=== PATIENT | female | born 1980 | race Caucasian/White ===

== ENCOUNTER 2024-07-01 22:08 | Emergency (ER) | payer SELFPAY ==
[2024-07-01 22:10] VITALS: BP 142/81; PULSE 97; RESP 20; TEMP 36.1; O2SAT 97; BMI 27.9
[2024-07-01 22:17] VITALS: O2SAT 100
--- NOTE | 2024-07-01 22:24 | RAD_ITS ---
PROCEDURE: CHEST 1 VIEW (PORTABLE) 07/01/2024 REASON FOR EXAM: CHEST PAIN TECHNIQUE: Frontal view of the chest. COMPARISON: None FINDINGS: Hardware: None Heart: Cardiac and mediastinal contours are stable. Lungs: The lungs are clear. Bones: The bones are unremarkable. Other: RAD/Chest 1 View (Portable) IMPRESSION: No Acute Findings. Reading Location: [facility]
[2024-07-01 22:48] LABS: Absolute Neutrophil Count 5.7 X10^3/uL (2.0-7.7); Basophil# 0.04 X10^3/uL; Basophil% 0.4 % (0-1); Eosinophil# 0.07 X10^3/uL; Eosinophils% 0.7 % (0-5); Hemoglobin 14.4 g/dL (12.0-15.0); Lymphocyte % 33.5 % (19-41); Mean Corp Hgb Conc 34.3 g/dL (32-36); Mean Corpuscular Hgb 30.3 pg (27.0-32.0); Mean Corpuscular Volume 88.4 fL (81-99); Mean Platelet Vol. 10.6 fl (6.2-12.0); Monocyte# 0.48 X10^3/uL; NRBC Flagged by Analyzer 0 % (0-5); Neutrophil # 5.74 X10^3/uL (2.7-7.7); Neutrophil % 60.2 % (47-70); Platelet Count 346 K/mm3 (150-450); RBC Distribution Width CV 12.2 % (11.6-14.6); Red Blood Count 4.75 M/mm3 (4.2-5.4); White Blood Count 9.6 K/mm3 (4.4-11.0)
[2024-07-01 23:03] LABS: Anion Gap 14 (5-15); BUN 13 mg/dL (4-19); BUN/Creat Ratio 16.1 RATIO (10-20); Calcium,Total 9.3 mg/dL (7.6-11.0); Carbon Dioxide 22.4 mmol/L (21.0-32.0); Chloride 99 mmol/L (98-108); Creatinine, Serum 0.81 mg/dL (0.70-1.20); EST Glomerular Filtration Rate 92 (>60); Glucose 97 mg/dL (70-99); Potassium 3.2 mmol/L (3.3-5.1); Sodium Level 135 mmol/L (133-145); Troponin T High Sensitivity < 6 ng/L (<=14)
[2024-07-01 23:09] VITALS: PULSE 63; RESP 15; O2SAT 98
[2024-07-02] VITALS: PULSE 67; RESP 16; O2SAT 99
[2024-07-02 00:32] VITALS: PULSE 60; RESP 13; O2SAT 97
[2024-07-02 00:34] VITALS: BP 118/62; PULSE 63; RESP 27; O2SAT 99
[2024-07-02 00:52] LABS: Magnesium 1.9 mg/dL (1.5-2.2)
[2024-07-02 01:00] VITALS: BP 110/64; PULSE 63; RESP 18; O2SAT 98
[2024-07-02 01:13] LABS: Troponin T High Sens 2 HR < 6 ng/L (<=14)
[2024-07-02 01:25] VITALS: BP 118/64; PULSE 69; RESP 13; O2SAT 99
--- NOTE | 2024-07-02 01:27 | EDS_ITS ---
HPI History of Present Illness Chief Complaint: Chest Pain Informant: patient and family Narrative Narrative: Patient is a 44-year-old female who reports no significant past medical history. She states that this evening she began to feel like her heart was racing and slightly short of breath and with this she noticed some anterior left-sided chest discomfort. She states that her blood pressure was elevated as well. She states then she noticed a sensation of paresthesias throughout her arms and legs. She states that she only takes supplements and that the only new medication is a recent prescription for a Medrol Dosepak secondary to poison marilyn. She also states that she has not suddenly stopped medications which could precipitate withdrawal symptoms. She denies any recent travel surgery or history of DVT. She denies any history of illicit drug use. However with her reported hypertension and palpitations and chest discomfort she was concerned this could be cardiac in nature and therefore comes to the hospital for evaluation [facility] Medical History (Updated 07/02/24 @ 01:[address] Giancarlo Hendrix, DO) Impetigo Folliculitis barbae Acute maxillary sinusitis, unspecified Back pain Neck pain Severe headache Anemia Home Medications ?Medication ?Instructions ?Recorded ?Last Taken ?Type diazepam 2 mg tablet 5 mg (2.5 x 2 mg) PO TID PRN PRN 11/22/13 Unknown Rx Vertigo #10 TABLETS lisdexamfetamine 70 mg capsule 70 mg PO DAILY 10/19/22 Unknown History (Vkishan) Allergy/AdvReac Type Severity Reaction Status Date / Time Penicillins (PCN) Allergy Other Verified 07/01/24 22:09 Surgical History Hx of cholecystectomy H/O: hysterectomy Hx of appendectomy Social History (Updated 07/01/24 @ 22:18 by Roshni Pinzon) household members: children current occupational status: employed Smoking Status: Current every day smoker tobacco type: cigarettes ROS ROS ED Constitutional Constitutional ED: Denies chills or fever(s) Eyes Eyes: Denies blurry vision or change in vision ENT ENT ED: Denies sore throat Cardiovascular Cardiovascular: Reports chest pain, palpitations and racing heartbeat Respiratory/Chest Respiratory/Chest: Reports dyspnea; Denies cough Gastrointestinal Gastrointestinal: Denies abdominal pain, diarrhea, nausea or vomiting Genitourinary Genitourinary ED: Denies dysuria Musculoskeletal Musculoskeletal: Denies myalgias Integumentary Denies rash Neurologic Neurologic: Denies headache(s) Hematologic/Lymphatic Hematologic/Lymphatic: Denies easy bleeding or easy bruising EXAM Physical Exam Const Vital Signs: 07/01/24 22:10 07/01/24 22:17 07/01/24 22:17 Temperature 96.9 F L Temperature Source Temporal Pulse Rate 97 Respiratory Rate 20 H Respiratory Effort Normal Non-Labored Blood Pressure 142/81 H Blood Pressure Mean 101 Pulse Ox 97 100 Oxygen Delivery Method Room Air Room Air 07/01/24 23:09 07/02/24 00:00 07/02/24 00:32 Temperature Temperature Source Pulse Rate 63 67 60 Respiratory Rate 15 16 13 Respiratory Effort Blood Pressure Blood Pressure Mean Pulse Ox 98 99 97 Oxygen Delivery Method Room Air Room Air 07/02/24 00:34 07/02/24 01:00 07/02/24 01:25 Temperature Temperature Source Pulse Rate 63 63 69 Respiratory Rate 27 H 18 13 Respiratory Effort Blood Pressure 118/62 110/64 118/64 Blood Pressure Mean 80 79 82 Pulse Ox 99 98 99 Oxygen Delivery Method Room Air Positive well nourished and well developed General Appearance ED: well developed; Negative for pallor HEENT HEENT Narrative: Normocephalic atraumatic Eyes PERRL and EOMs intact bilaterally General Eye ED: Negative for pale conjunctiva or scleral icterus Neck supple Neck Narrative: No nuchal rigidity or meningeal signs Chest Wall Chest Narrative: There is reproducible chest pain along the left anterior chest wall rib regions 4-6 without bony deformity or crepitance. Patient states that this pain is different than the pain she was experiencing prior to arrival Resp normal respiratory effort and clear to auscultation bilaterally Cardio regular rate and regular rhythm Rate: other Other Details: Heart is regular rate and rhythm without murmurs rubs or gallop Radial and carotid pulses are equal and symmetric No carotid bruit noted GI normal to inspection, nondistended, normoactive bowel sounds, non-tender, non- distended and no masses Auscultation: normoactive bowel sounds Palpation: soft Extremity normal to inspection Extremity Narrative: No asymmetric edema no pitting edema negative Homans' sign bilaterally Neuro oriented x3, CN's II-XII intact bilaterally and no sensory deficits noted Sensorium / Orientation: alert Motor Exam: strength 5/5 throughout Psych Mood & Affect: anxious Skin no rashes or lesions noted and no wounds General Skin Exam: Negative for jaundice or pallor MDM MDM MDM Narrative Medical decision making narrative: Patient arrived to the ER slightly hypertensive but otherwise with stable vitals. She reported feeling palpitations shortness of breath and left-sided chest discomfort. There is concern that this could be related to acute coronary syndrome or cardiac dysrhythmia. There is also potential for pulmonary embolus or dissection or lung pathology such as pneumonia or pneumothorax. Secondary to this basic labs were obtained with troponin and D-dimer. D-dimer was normal going against a dissection or pulmonary embolus. Chest x-ray revealed no acute lung pathology. Initial and delta troponin were both less than 6 going against ACS. The patient was kept on the monitor for the entire ER stay and there was no cardiac dysrhythmia. With her report of palpitations prior to the chest discomfort she may have been in a paroxysmal heart dysrhythmia such as A-fib a flutter or SVT. However we did not catch that on her EKG or engine monitor. Therefore at this time with negative workup and spontaneous resolution of symptoms I do not feel there is need for further workup in the ER and she is otherwise safe for discharge History & Record Review Discussion w/independent historian: Patient Lab Data Attestation: I reviewed the patient's lab results. Labs: Laboratory Results - last 24 hr 07/01/24 07/02/24 22:26 00:28 WBC 9.6 RBC 4.75 Hgb 14.4 Hct 42.0 MCV 88.4 MCH 30.3 MCHC 34.3 RDW Std Deviation 40.0 RDW Coeff of Herson 12.2 Plt Count 346 MPV 10.6 Immature Gran % (Auto) 0.200 Neut % (Auto) 60.2 Lymph % (Auto) 33.5 Cochran % (Auto) 5.0 Eos % (Auto) 0.7 Baso % (Auto) 0.4 Absolute Neuts (auto) 5.7 Absolute Lymphs (auto) 3.20 Nucleated RBC % 0 D-Dimer Quant (PE/DVT) 0.40 Sodium 135 Potassium 3.2 L Chloride 99 Carbon Dioxide 22.4 Anion Gap 14 BUN 13 Creatinine 0.81 Estim Creat Clear Calc 90.50 Est GFR (MDRD) Non-Af 92 BUN/Creatinine Ratio 16.1 Glucose 97 Calcium 9.3 Magnesium 1.9 Troponin T High Sens < 6 Troponin T Hi Sens 2 Hr < 6 Radiography Diagnostic Testing: Clinical Impression(s) from Imaging Studies Chest X-Ray 07/01/24 22:24 IMPRESSION: No Acute Findings. Reading Location: [facility] Chest x-ray as interpreted by the emergency medicine physician reveals no acute infiltrate pneumothorax or pleural effusion Discharge Plan Triage Chief Complaint: Chest Pain ED Provider: Giancarlo Hendrix Dx/Rx/DC Orders Clinical Impression: Nonspecific chest pain, Palpitations Instructions: ED Chest Pain, Uncertain Cause, ED Palpitations Prescriptions: No Action Vyvanse 70 mg capsule 70 mg PO DAILY diazepam 2 MG tablet 5 mg PO TID PRN PRN (Reason: Vertigo) Qty: 10 0RF Primary Care Provider: Yudi Michelle NP Referrals: Yudi Michelle NP, [facility] [Primary Care Provider] - Activity Restrictions/Additional Instructions: Your workup today showed no abnormal heart rhythm or signs of active heart damage or blood clot. There is concern however you would have been an abnormal heart rhythm when you felt your symptoms and therefore talk to your doctor about a Holter monitor to further assess for this. Return to the ER should you have any further concerns Print Language: Portuguese Disposition Disposition: Home, Self Care Discharge Date/Time: 07/02/24 01:35
== END 2024-07-02 01:35 | disposition home or self-care (01) ==
PROVIDERS: Emergency Provider Emergency Medicine; PCP Nurse Practitioner Family; Visit Provider Emergency Medicine
DX: R07.9 Chest pain, unspecified (principal); F17.210 Nicotine dependence, cigarettes, uncomplicated; R06.02 Shortness of breath; R00.2 Palpitations
CPT/HCPCS: 71045; 80048; 83735; 84484; 85025; 85379; 93005; 99284; A4216